=== PATIENT | male | born 1960 | race African-American/Black ===

== ENCOUNTER 2020-03-22 03:01 | Emergency (ER) | payer SELFPAY ==
[~2020-03-22] VITALS: Ht 182.9 cm; Wt 72.0 kg
[2020-03-22 04:45] LABS: BASOPHILS % 0.3 % (0.0-2.0); EOSINOPHILS % 0.1 % (0.0-5.0); HEMATOCRIT. 28.5 % (42.0-52.0); HEMOGLOBIN. 9.2 g/dL (14.0-18.0); LYMPHOCYTES % 7.2 % (20.0-50.0); MEAN CORPUSCULAR HEMOGLOBIN 31.3 pg (28.0-32.0); MEAN CORPUSCULAR VOLUME 96.7 fL (80.0-94.0); MEAN PLATELET VOLUME 7.4 fl (7.4-10.4); MONOCYTES % 4.2 % (2.0-8.0); NEUTROPHILS % 88.2 % (40.0-76.0); PLATELET 389 x1000/uL (130-400); RED BLOOD CELL COUNT 2.94 mill/uL (4.7-6.1); RED CELL DISTRIBUTION WIDTH 20.8 % (11.6-14.6)
[2020-03-22 04:54] LABS: CHLORIDE 105 mEq/L (98-107)
[2020-03-22 07:26] VITALS: BP 130/90
== END 2020-03-22 07:28 | disposition home or self-care (01) ==
LOC: ER 03:01
DX: U07.1 COVID-19 (principal); R73.9 Hyperglycemia, unspecified; D72.829 Elevated white blood cell count, unspecified; D64.9 Anemia, unspecified; Z85.46 Personal history of malignant neoplasm of prostate
CPT/HCPCS: 36415; 71045; 80053; 85025; 99284; C9803; U0003